=== PATIENT | female | born 1980 | race Caucasian/White ===

== ENCOUNTER 2021-04-08 10:23 | Emergency (ER) | payer OTHER ==
[~2021-04-08] VITALS: Ht 165.1 cm; Wt 97.5 kg
[~2021-04-08 10:23] MED LIST: ALBU90OI INH; AMOX500 PO; CLIN300 PO; HYDACE5 PO; LEVFLO500 PO; OXYACE10 PO; PENVK500 PO; PROM25 PO; TRAM50 PO
[2021-04-08] MEDS ORDERED: EPIPEN0.3 MG/0.1 IM (12:49)
[2021-04-08] MEDS ORDERED: FAMO20 PO (12:49)
[2021-04-08] MEDS ORDERED: BENADRYL25 M1 PO (12:49)
[2021-04-08] MEDS ORDERED: PRED20 PO (12:49)
== END 2021-04-08 13:50 | disposition home or self-care (01) ==
LOC: ER 10:23
DX: T63.441A Toxic effect of venom of bees, accidental (unintentional), initial encounter (principal); T78.2XXA Anaphylactic shock, unspecified, initial encounter; F17.210 Nicotine dependence, cigarettes, uncomplicated
CPT/HCPCS: 94640; 96374; 96375; 99285-25; J1200

== ENCOUNTER → 2021-10-17 | Outpatient (CLI) | payer OTHER ==
[~2021-10-17] MED LIST changes: +BENADRYL25 M1 PO; +EPIPEN0.3 MG/0.1 IM; +FAMO20 PO; +PRED20 PO
== END | disposition home or self-care (01) ==
LOC: LAB SHORT 13:00
DX: N87.0 Mild cervical dysplasia (principal)
CPT/HCPCS: 88305

== ENCOUNTER 2023-11-09 18:53 | Emergency (ER) | payer OTHER ==
[~2023-11-09] VITALS: Ht 165.1 cm; Wt 98.4 kg
[2023-11-09] MEDS ORDERED: Ondansetron HCl 2 MG / ML 2ML Vial IV PRN (19:10)
[2023-11-09] MEDS ORDERED: NS 1,000 ML IV SCH (19:30)
[2023-11-09] MEDS ORDERED: Ketorolac Tromethamine 30mg Vial IV ONE (19:30)
[2023-11-09 19:52] LABS: BASOPHILS ABSOLUTE AUTO 0.04 K/mm3 (0.00-0.23); BASOPHILS PERCENT AUTO 0 % (0-2); EOSINOPHILS ABSOLUTE AUTO 0.12 K/mm3 (0.00-0.68); EOSINOPHILS PERCENT AUTO 1 % (0-6); Hematocrit 45.9 % (33.0-51.0); Hemoglobin 15.3 g/dL (11.5-16.0); IMMATURE GRAN ABSOLUTE AUTO 0.03 K/mm3 (0.00-0.10); IMMATURE GRAN PERCENT AUTO 0 % (0-1); LYMPHOCYTES ABSOLUTE AUTO 2.93 K/mm3 (0.84-5.20); LYMPHOCYTES PERCENT AUTO 30 % (21-46); MONOCYTES ABSOLUTE AUTO 0.51 K/mm3 (0.16-1.47); MONOCYTES PERCENT AUTO 5 % (4-13); Mean Corpuscular HGB 30.1 pg (26.0-34.0); Mean Corpuscular HGB Conc 33.3 g/dL (31.5-36.5); Mean Corpuscular Volume 90 fL (80-100); Mean Platelet Volume 11.2 fL (9.1-12.4); NEUTROPHILS PERCENT AUTO 64 % (41-73); Platelet Count 335 K/mm3 (150-400); RDW Coefficient Variation 14.1 % (11.7-14.2); RDW Standard Deviation 46.9 fL (35.1-46.3); Red Blood Cell Count 5.09 M/mm3 (3.80-5.20); White Blood Cell Count 9.93 K/mm3 (4.00-11.30)
[2023-11-09 20:20] LABS: Albumin, Blood 3.8 g/dL (3.4-5.0); Bilirubin, Total 0.4 mg/dL (0.1-1.0); Bun/Creatinine Ratio 16.7 (12.0-20.0); Calcium, Blood 9.2 mg/dL (8.5-10.1); Creatinine, Blood 0.66 mg/dL (0.40-1.00); Potassium, Blood 3.6 mmol/L (3.5-5.5); Total Protein, Blood 7.8 g/dL (6.4-8.2)
[2023-11-09 20:32] LABS: Influenza A, PCR NEGATIVE (NEGATIVE); Resp Syncytial Virus, PCR NEGATIVE (NEGATIVE); SARS-Cov-2 (COVID-19) PCR, MMC NEGATIVE (NEGATIVE)
[2023-11-09 20:42] LABS: Influenza B, PCR POSITIVE (NEGATIVE)
[2023-11-09] MEDS ORDERED: ONDA4ODT MM (21:00)
[2023-11-09] MEDS ORDERED: BENZ100A PO (21:00)
[2023-11-09] MEDS ORDERED: RX Prepack 2 Tabs Ondansetron ODT 4MG UD ONE (21:00)
[2023-11-09 21:30] VITALS: BP 148/76
== END 2023-11-09 21:31 | disposition home or self-care (01) ==
LOC: ER 18:53
PROVIDERS: Student in an Organized Health Care Education/Training Program
DX: J10.1 Influenza due to other identified influenza virus with other respiratory manifestations (principal); E86.0 Dehydration; F17.210 Nicotine dependence, cigarettes, uncomplicated; Z79.899 Other long term (current) drug therapy
CPT/HCPCS: 0241U; 71046; 80053; 85025; 96361; 96374; 96375; 99284-25; A9270; J1885; J2405; J7030

== ENCOUNTER 2024-11-23 09:02 | Emergency (ER) | payer OTHER ==
[~2024-11-23] VITALS: Ht 165.1 cm; Wt 101.6 kg
[~2024-11-23 09:02] MED LIST changes: +BENZ100A PO; +ONDA4ODT MM
[2024-11-23] MEDS ORDERED: Diphth,Pertuss(Acell),Tet Vac 0.5 ML VIAL IM ONE (09:35)
[2024-11-23 12:08] VITALS: BP 159/88
[2024-11-23] MEDS ORDERED: PROAIR RESPICL90 MCG (19:14)
[2024-11-23] MEDS ORDERED: BUDESONIDE-FO10.2 G2 (19:14)
[2024-11-23] MEDS ORDERED: HYDR1TAB94 PO (20:13)
== END 2024-11-23 12:08 | disposition home or self-care (01) ==
LOC: ER 09:02
DX: S61.210A Laceration without foreign body of right index finger without damage to nail, initial encounter (principal); F17.210 Nicotine dependence, cigarettes, uncomplicated; Z23 Encounter for immunization; W10.9XXA Fall (on) (from) unspecified stairs and steps, initial encounter; M25.561 Pain in right knee; M25.061 Hemarthrosis, right knee
CPT/HCPCS: 12002; 73140; 73562-RT; 90471; 90715; 99283-25; A9270

== ENCOUNTER 2024-11-23 18:19 | Emergency (ER) | payer OTHER ==
[~2024-11-23] VITALS: Ht 167.6 cm; Wt 81.7 kg
[2024-11-23] MEDS ORDERED: PROAIR RESPICL90 MCG (19:14)
[2024-11-23] MEDS ORDERED: BUDESONIDE-FO10.2 G2 (19:14)
[2024-11-23 19:54] VITALS: BP 162/91
[2024-11-23] MEDS ORDERED: RX Prepack 6 Tabs Oxycodone 5mg UD ONE (20:10)
[2024-11-23] MEDS ORDERED: HYDR1TAB94 PO (20:13)
== END 2024-11-23 20:39 | disposition home or self-care (01) ==
LOC: ER 18:19
DX: S82.044A Nondisplaced comminuted fracture of right patella, initial encounter for closed fracture (principal); M25.061 Hemarthrosis, right knee; F17.210 Nicotine dependence, cigarettes, uncomplicated; W01.0XXA Fall on same level from slipping, tripping and stumbling without subsequent striking against object, initial encounter
CPT/HCPCS: 73562-RT; A9270